=== PATIENT | female | born 1945 | race Two or more races ===

== ENCOUNTER 2018-10-31 08:24 | Outpatient (CLI) | payer OTHER | END 2018-10-31 17:00 | disposition home or self-care (01) | LOC: MAMO-SONO 08:24 | DX: Z12.31 Encounter for screening mammogram for malignant neoplasm of breast (principal); Z87.898 Personal history of other specified conditions; N60.01 Solitary cyst of right breast; N60.02 Solitary cyst of left breast ==

== ENCOUNTER 2018-10-31 09:52 | Outpatient (CLI) | payer OTHER | END 2018-10-31 09:55 | disposition home or self-care (01) | LOC: NUCLEAR 09:52 | DX: M81.0 Age-related osteoporosis without current pathological fracture (principal) ==

== ENCOUNTER 2020-09-13 10:48 | Outpatient (CLI) | payer OTHER | END 2020-09-13 10:58 | disposition home or self-care (01) | LOC: MAMO-SONO 10:48 | PROVIDERS: ATTEND Family Medicine Adult Medicine | DX: Z12.31 Encounter for screening mammogram for malignant neoplasm of breast (principal); Z12.11 Encounter for screening for malignant neoplasm of colon; N64.59 Other signs and symptoms in breast ==

== ENCOUNTER 2021-04-21 13:24 | Outpatient (CLI) | payer OTHER | END 2021-04-21 13:25 | disposition home or self-care (01) | LOC: NUCLEAR 13:24 | PROVIDERS: ATTEND Family Medicine Adult Medicine | DX: M81.0 Age-related osteoporosis without current pathological fracture (principal) ==

== ENCOUNTER 2021-09-19 08:40 | Outpatient (CLI) | payer OTHER | END 2021-09-19 08:42 | disposition home or self-care (01) | LOC: SONOGRAMA 08:40 | PROVIDERS: ATTEND Internal Medicine Nephrology | DX: N18.30 Chronic kidney disease, stage 3 unspecified (principal) ==

== ENCOUNTER → 2022-04-26 12:09 | Outpatient (CLI) | payer OTHER | END | disposition home or self-care (01) | LOC: MAMO-SONO 12:09 | DX: Z12.31 Encounter for screening mammogram for malignant neoplasm of breast (principal) ==

== ENCOUNTER 2022-06-13 09:11 | Outpatient (CLI) | payer OTHER | END 2022-06-13 09:12 | disposition home or self-care (01) | LOC: LAB 09:11 | PROVIDERS: ATTEND Radiology Diagnostic Radiology | DX: R10.32 Left lower quadrant pain (principal) ==

== ENCOUNTER → 2022-06-23 | Outpatient (CLI) | payer OTHER | END | disposition home or self-care (01) | LOC: TOM 07:05 | DX: R10.32 Left lower quadrant pain (principal) | CPT/HCPCS: 74177; Q9965 ==

== ENCOUNTER 2023-05-04 09:24 | Outpatient (CLI) | payer OTHER | END 2023-05-04 09:31 | disposition home or self-care (01) | LOC: MAMO-SONO 09:24 | PROVIDERS: ATTEND Family Medicine Adult Medicine | DX: Z12.31 Encounter for screening mammogram for malignant neoplasm of breast (principal) ==

== ENCOUNTER 2023-08-23 12:38 | Outpatient (CLI) | payer OTHER | END 2023-08-23 12:40 | disposition home or self-care (01) | LOC: NUCLEAR 12:38 | PROVIDERS: ATTEND Family Medicine Adult Medicine | DX: M81.0 Age-related osteoporosis without current pathological fracture (principal) ==

== ENCOUNTER 2024-09-12 10:56 | Outpatient (CLI) | payer OTHER | END 2024-09-12 10:57 | disposition home or self-care (01) | LOC: SONOGRAMA 10:56 | PROVIDERS: ATTEND Internal Medicine Nephrology | DX: N18.2 Chronic kidney disease, stage 2 (mild) (principal) ==

== ENCOUNTER → 2024-10-29 | Outpatient (CLI) | payer OTHER | END | disposition home or self-care (01) | LOC: MAMO-SONO 10:38 | PROVIDERS: ATTEND Family Medicine Adult Medicine | DX: Z12.31 Encounter for screening mammogram for malignant neoplasm of breast (principal) ==